=== PATIENT | male | born 1945 | race Caucasian/White ===

== ENCOUNTER → 2021-02-10 16:03 | Outpatient (BNVA) | payer MEDICARE, OTHER, SELFPAY | PROVIDERS: Visit Provider Nurse Practitioner Family | DX: R55 Syncope and collapse (principal); G20 Parkinson's disease; Z91.81 History of falling | CPT/HCPCS: Q3014 ==

== ENCOUNTER → 2021-03-16 13:38 | Outpatient (BNVA) | payer MEDICARE, OTHER, SELFPAY | PROVIDERS: Visit Provider Nurse Practitioner Family | DX: G20 Parkinson's disease (principal); G47.52 REM sleep behavior disorder; G47.61 Periodic limb movement disorder; M43.6 Torticollis; R55 Syncope and collapse | CPT/HCPCS: 99212 ==

== ENCOUNTER → 2021-05-18 10:46 | Outpatient (BNVA) | payer MEDICARE, OTHER, SELFPAY | PROVIDERS: PCP Internal Medicine; Visit Provider Nurse Practitioner Family | DX: G20 Parkinson's disease (principal); R55 Syncope and collapse; M43.6 Torticollis; G24.9 Dystonia, unspecified; R44.3 Hallucinations, unspecified; F17.290 Nicotine dependence, other tobacco product, uncomplicated | CPT/HCPCS: Q3014 ==

== ENCOUNTER 2021-07-06 13:04 | Outpatient (REF) | payer MEDICARE, OTHER, SELFPAY ==
--- NOTE | 2021-07-06 13:11 | EEG_ITS ---
This is a 16-channel EEG with an EKG lead. The patient is reported awake during the tracing. Background EEG rhythm is 5 to 20 microvolt, 7 to 8 hertz with no obvious asymmetry or paroxysmal tendency. Photic stimulation does not produce any significant driving. Hyperventilation is not performed. Cardiac lead does not reveal any significant abnormality. No sharp wave spikes or asymmetry noted. IMPRESSION: Mild generalized slowing with no evidence of seizure disorder. MD ASYA Sebatsian/MIKE / [id number]
== END 2021-07-06 13:05 | disposition home or self-care (01) ==
LOC: HO.NEURO 13:04
PROVIDERS: PCP Internal Medicine; Visit Provider Nurse Practitioner Family
DX: G20 Parkinson's disease (principal); R55 Syncope and collapse
CPT/HCPCS: 95816

== ENCOUNTER → 2021-07-22 10:41 | Outpatient (BNVA) | payer MEDICARE, OTHER, SELFPAY | PROVIDERS: PCP Internal Medicine; Visit Provider Nurse Practitioner Family | DX: G20 Parkinson's disease (principal); M43.6 Torticollis; G47.52 REM sleep behavior disorder; R55 Syncope and collapse; Z79.899 Other long term (current) drug therapy | CPT/HCPCS: Q3014 ==

== ENCOUNTER → 2021-10-19 11:32 | Outpatient (BNVA) | payer MEDICARE, OTHER, SELFPAY | PROVIDERS: PCP Internal Medicine; Visit Provider Nurse Practitioner Family | DX: G20 Parkinson's disease (principal); M43.6 Torticollis; G47.52 REM sleep behavior disorder | CPT/HCPCS: Q3014 ==

== ENCOUNTER 2024-11-07 06:57 | Outpatient (REF) | payer MEDICARE, OTHER, SELFPAY ==
--- OUTSIDE RECORDS SUMMARY | 2024-11-07 07:00 | XMS_ITS ---
Author Organization [facility] on Care Team Providers Care Layout Designer Name Role Phone Janell Mendez Unavailable Unavailable Manish Hess Unavailable Unavailable Hamzah Kelly Unavailable Unavailable Andreia Edmond Unavailable Unavailable Allergies and adverse reactions Code CodeSystem Substance Reaction Severity StartDate Concern Status 719344243 SNOMED CT Green peas Unknown 05/24/2023 active Care Team Name Role Address Phone Organization Dates Hamzah Kelly [address], [address], [facility] (Office): : [facility] 05/23/2023 - 05/29/2023 Janell Mendez [address] [place] [address], [phone], [place] (Office): [facility] [place] [facility] 05/23/2023 - 05/29/2023 Manish Hess [address] [place] [address], [phone], [place] (Office): [facility] [place] 05/23/2023 - 05/29/2023 Andreia Edmond [address] [place] [address], [phone], [place] (Office): : [facility] [place] 05/23/2023 - 05/29/2023 Immunizations Immunization Status Vaccine Details Vaccine Code CodeSystem Date Notes TB 1 Step Mantoux (PPD) completed tuberculin skin test; unspecified formulation lotNumber: [id number] expiry: 06/04/2026 Mfg: sanofi Pasteur Given 0.1 ml Right Forearm intradermally 98 CVX created date: 05/25/2023 consent date: 05/24/2023 administer ed date: 05/24/2023 Pneumococcal Polysaccharide Vaccine (PPSV23) completed pneumococcal polysaccharide vaccine, 23 valent 33 CVX created date: 05/23/2023 administer ed date: 11/01/2018 Verified in MIIS. SARS-COV-2 (COVID-19) completed SARS-COV-2 (COVID-19) vaccine, mRNA, spike protein, LNP, preservative free, 30 mcg/0.3mL dose Mfg: pfizer Step 2 of Multi-step with next step required 208 CVX created date: 05/23/2023 administer ed date: 05/14/2020 Verified in MIIS. SARS-COV-2 (COVID-19) completed SARS-COV-2 (COVID-19) vaccine, mRNA, spike protein, LNP, preservative free, 30 mcg/0.3mL dose Mfg: pfizer Step 1 of Multi-step with next step required 208 CVX created date: 05/23/2023 administer ed date: 04/23/2020 Verified in MIIS. Shingrix completed zoster vaccine recombinant 187 CVX created date: 05/23/2023 administer ed date: 02/24/2019 Verified in MIIS. Shingrix completed zoster vaccine recombinant 187 CVX created date: 05/23/2023 administer ed date: 11/01/2018 Verified in MIIS. Prevnar 20 Pneumococcal conjugate (PCV20) completed Pneumococcal conjugate vaccine 20-valent (PCV20), polysaccharide [id number] conjugate, adjuvant, preservative free 216 CVX created date: 05/23/2023 administer ed date: 11/07/2021 Verified in MIIS. SARS-COV-2 (COVID-19 BOOSTER) completed SARS-COV-2 (COVID-19) vaccine, mRNA, spike protein, LNP, preservative free, sadaf-sucrose, 30 mcg/0.3 mL dose Mfg: PFIZER COMIRNATY 309 CVX created date: 05/23/2023 administer ed date: 11/07/2022 Verified in MIIS. SARS-COV-2 (COVID-19 BOOSTER) completed SARS-COV-2 (COVID-19) vaccine, mRNA, spike protein, LNP, bivalent, preservative free, 30 mcg/0.3 mL dose, sadaf-sucrose formulation Mfg: Pfizer Bilvalent Booster 300 CVX created date: 05/23/2023 administer ed date: 12/09/2021 Verified in MIIS. SARS-COV-2 (COVID-19 BOOSTER) completed SARS-COV-2 (COVID-19) vaccine, mRNA, spike protein, LNP, preservative free, 30 mcg/0.3mL dose Mfg: SendHub Booster # 2 208 CVX created date: 05/23/2023 administer ed date: 05/14/2021 Verified in MIIS. SARS-COV-2 (COVID-19 BOOSTER) completed SARS-COV-2 (COVID-19) vaccine, mRNA, spike protein, LNP, preservative free, 30 mcg/0.3mL dose Mfg: SendHub Booster # 1 208 CVX created date: 05/23/2023 administer ed date: 11/11/2020 Verified in MIIS. RSV, recombinant, protein subunit RSVpreF, adjuvant rec completed Respiratory syncytial virus (RSV), vaccine, recombinant, protein subunit RSV prefusion F, adjuvant reconstituted, 0.5 mL, preservative free 303 CVX created date: 05/23/2023 administer ed date: 11/21/2022 Verified in MIIS. influenza, unspecified formulation completed influenza virus vaccine, unspecified formulation 88 CVX created date: 05/23/2023 administer ed date: 11/07/2022 Verified in MIIS. 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 05/23/[address] active 4 CELLULITIS OF LEFT UPPER LIMB 05/23/[address] active 5 ESSENTIAL (PRIMARY) HYPERTENSION 05/23/[address] active 6 HYPERLIPIDEMIA, UNSPECIFIED 05/23/[address] active 7 HYPOTHYROIDISM, UNSPECIFIED 05/23/[address] active 8 INFLUENZA DUE TO IDENTIFIED NOVEL INFLUENZA A VIRUS WITH OTHER RESPIRATORY MANIFESTATIONS 05/23/[address] active 9 PARKINSON'S DISEASE WITH DYSKINESIA, WITHOUT MENTION OF FLUCTUATIONS 05/23/[address] active Reason for Referral No Reasons for Referral Entered Social History Social History Observation Description Start Date End Date Code Code System Current Smoking Status Tobacco smoking consumption unknown 919517995 SNOMED CT Sex Assigned At Male 1945 32577-0 [facility] Gender Identity Sexual Orientation Vital Signs Code Code System Vitals Name Values and Units Timing Information 02405-8 [facility] Pain Level Value=0.0 05/29/2023 9279-1 [facility] Respiratory Rate Value=18.0 Units=/m in 05/28/2023 8462-4 [facility] Blood Pressure-Diastolic Value=86 Un its=mmHg 05/28/2023 8480-6 [facility] Blood Pressure-Systolic Slprn=744 Un its=mmHg 05/28/2023 8310-5 [facility] Body Temperature Value=98.6 Units= F 05/28/2023 8867-4 [facility] Heart rate Value=70.0 Units=/min 14136-6 [facility] O2 % BldC Oximetry Value=96.0 Units= % 05/28/2023 8302-2 [facility] Height Value=70.0 Units=Inches 05/28/2023 07193-6 [facility] Weight Dkkjx=714.0 Units=Lbs
--- OUTSIDE RECORDS SUMMARY | 2024-11-07 07:00 | XMS_ITS | Clinical Summary ---
Author Organization [facility] Address [address] [place] [address] Care Team Providers Care Makeup Sales Consultant Name Role Phone Derik Albino Mary Kay Primary Care Provider [phone] Allergies No known active allergies Medications levothyroxine (SYNTHROID, LEVOTHROID) 112 mcg tablet 11/06/2020 Active Myrbetriq 50 mg tablet Take 1 tablet by mouth once a day. 08/19/2020 Active rasagiline (AZILECT) 1 mg tablet Take 1 mg by mouth once a day. 08/19/2020 Active simvastatin (ZOCOR) 20 mg tablet Take 20 mg by mouth once a day. 09/25/2020 Active Inbrija 42 mg 02/16/2020 Activ e finasteride (PROSCAR) 5 mg tablet Take 5 mg by mouth once a day. 10/06/2020 Active Rytary 23.75-95 mg capsule TAKE 3 CAPSULES BY MOUTH 4 TIMES DAILY 07/30/2020 Active citalopram (CeleXA) 10 mg tablet Take 10 mg by mouth once a day. 08/19/2020 Active cholecalciferol (VITAMIN D3) 1,000 unit tablet Take 1,000 Units by mouth once a day. Active Social History Tobacco Use Types Packs/Day Years Used Date Smoking Tobacco: Some Days Smokeless Tobacco: Never Comments:cigar Sex and Gender Information Value Date Recorded Sex Assigned at Male 10/26/2020 12:38 PM EDT Legal Sex Male 4:12 PM EDT Gender Identity Male 10/26/2020 12:38 PM EDT Sexual Orientation Straight 10/26/2020 12 :38 PM EDT Last Filed Vital Signs Vital Sign Reading Time Taken Comments Blood Pressure 135/77 11/08/2020 1:17 PM EDT Pulse 76 11/08/2020 1:17 PM EDT Temperature 36.8 C (98.2 F) 11/08/2020 1:17 PM EDT Respiratory Rate - - Oxygen Saturation - - Inhaled Oxygen Concentration - - Weight - - Height - - Body Mass Index - - Plan of Treatment Health Maintenance Due Date Last Done Comments DTaP,Tdap,and Td Vaccines (1 - Tdap) 1968 Pneumococcal Vaccine: 50+ Years (2 of 2 - PCV) 11/02/2019 11/01/2018 RSV Vaccine (60+ years old and patients) (1 - 1-dose 75+ series) 2021 Alcohol/Substance Use Screening 02/06/2024 Health Care Proxy Review 02/06/2024 COVID-19 Vaccine (3 - season) 2024 05/14/2020, 04/23/2020 Influenza Vaccine (#1) 2024 , 11/07/2019, 10/26/2018, Additional history exists Zoster Vaccines Completed 02/24/2019, 11/01/2018 Hepatitis B Vaccines Aged Out No long er eligible based on patient's age to complete this topic Insurance MEDICARE [facility] Care Teams Makeup Sales Consultant Relationship Specialty Start Date End Date Albino More [address] [place] [phone] PCP - General Internal Medicine 10/25/20
[2024-11-07 07:02] LABS: MANUAL DIFF FLAG NO
[2024-11-07 07:45] LABS: Hematocrit 37.8 % (42.0-52.0); Hemoglobin 12.6 g/dl (14.0-18.0); Imm Gran Abs Auto 0.01 X10*3/uL (0.00-0.03); Imm Gran Pct Auto 0.2 % (0.0-0.4); Lymphocytes Absolute Auto 1.1 X10*3/uL (1.2-4.9); Mean Corpuscular HGB Conc 33.3 g/dl (31.0-36.0); Mean Corpuscular Hemoglobin 32.4 pg (27.0-33.0); Mean Corpuscular Volume 97.2 fL (80.0-98.0); NRBC Abs Auto 0.000 X10*3/uL (0.0-0.012); NRBC Pct Auto 0.0 /100WBC (0.0-0.2); Platelet Count 118 X10*3/uL (160-400); Red Blood Count 3.89 X10*6/uL (4.60-5.80); White Blood Count 4.5 X10*3/uL (4.8-10.8)
[2024-11-07 08:20] LABS: Thyroid Stimulating Hormone 0.23 uIU/mL (0.32-4.0)
[2024-11-07 11:35] LABS: Alanine Aminotransferase 6 U/L (0-40); Albumin Level 3.5 g/dL (3.5-5.0); Alkaline Phosphatase 70 U/L (39-117); Anion Gap 11 (12-20); Aspartate Amino Transferase 22 U/L (5-37); Blood Urea Nitrogen 28 mg/dL (9-16); Calcium 8.6 mg/dL (8.4-10.2); Carbon Dioxide 29 mmol/L (22-29); Chloride 108 mmol/L (96-108); Estimated Glomerular Filt Rate > 60; Potassium 4.0 mmol/L (3.3-5.1); Sodium 144 mmol/L (135-145); Total Protein 6.3 g/dL (6.5-8.0)
== END 2024-11-07 06:58 | disposition home or self-care (01) ==
LOC: HO.HSH3E 06:57
PROVIDERS: Visit Provider Nurse Practitioner
DX: E78.5 Hyperlipidemia, unspecified (principal); E03.9 Hypothyroidism, unspecified; Z86.73 Personal history of transient ischemic attack (TIA), and cerebral infarction without residual deficits
CPT/HCPCS: 36415; 80053; 80170; 82306; 84443; 85025

== ENCOUNTER 2024-12-01 18:39 | Outpatient (REF) | payer MEDICARE, OTHER, SELFPAY ==
[2024-12-01 19:17] LABS: Alanine Aminotransferase 32 U/L (0-40); Albumin Level 3.4 g/dL (3.5-5.0); Alkaline Phosphatase 99 U/L (39-117); Anion Gap 15 (12-20); Aspartate Amino Transferase 90 U/L (5-37); Blood Urea Nitrogen 32 mg/dL (9-16); Calcium 8.8 mg/dL (8.4-10.2); Carbon Dioxide 20 mmol/L (22-29); Chloride 109 mmol/L (96-108); Estimated Glomerular Filt Rate > 60; Potassium 3.8 mmol/L (3.3-5.1); Sodium 140 mmol/L (135-145); Total Protein 6.9 g/dL (6.5-8.0)
--- OUTSIDE RECORDS SUMMARY | 2024-12-01 19:32 | XMS_ITS | Clinical Summary ---
Author Organization [facility] Address [address] [facility] [address] [place] [phone] Phone Care Team Providers Care Supervisor Air Conditioning Installer Name Role Phone Vandana Arnold MD Primary Care Provider Allergies No known active allergies Medications RYTARY 23.75-95 mg ER capsule TAKE 3 CAPSULE BY MOUTH 4 TIMES A DAY 04/01/2022 Active rasagiline (AZILECT) 1 mg 04/25/2022 Acti ve melatonin 5 mg Tab TAKE 1 TABLET BY MOUTH EVERYDAY AT BEDTIME 03/31/2022 Active levothyroxine (SYNTHROID, LEVOTHROID) 112 MCG tablet Take 112 mcg by mouth daily. 01/31/2022 Active levodopa (INBRIJA) 42 mg CpDv Inhale 84 mg into the lungs. 03/31/2022 Active finasteride (PROSCAR) 5 mg tablet Take 5 mg by mouth daily. 02/20/2022 Active amantadine HCl (GOCOVRI) 137 mg Cp24 Take 137 mg by mouth. 03/31/2022 Active vibegron (GEMTESA) 75 mg tablet Take 75 mg by mouth. 03/31/2022 Active citalopram (CELEXA) 10 MG tablet Take 10 mg by mouth daily. Active Social History Tobacco Use Types Packs/Day Years Used Date Smoking Tobacco: Never Assessed Education Answer Date Recorded Are you interested in more education? Not on don e 06/02/2022 Are you concerned about learning? Not on file 06/02/2022 No 06/02/2022 No 06/02/2022 Digital Access Answer Date Recorded No 06/29/2022 No 06/29/2022 No 06/29/2022 Reliable internet access at home? Not on file 06/29/2022 Device with a working camera? Not on file Sex and Gender Information Value Date Recorded Sex Assigned at Not on file Legal Sex Male 11:47 AM EDT Gender Identity Not on file Sexual Orientation Not on file Last Filed Vital Signs Vital Sign Reading Time Taken Comments Blood Pressure 121/78 04/29/2022 12:42 PM EDT Pulse 73 04/29/2022 12:42 PM EDT Temperature 36.6 C (97.9 F) 04/29/2022 12:42 PM EDT Respiratory Rate 16 04/29/2022 12:42 PM EDT Oxygen Saturation 99% 04/29/2022 12:42 PM EDT Inhaled Oxygen Concentration - - Weight 75.3 kg (166 lb) 04/29/2022 12:42 PM EDT Height 177.8 cm (5' 10 ) 04/29/2022 12:42 PM EDT Body Mass Index 23.82 04/29/2022 12:42 PM EDT Plan of Treatment Health Maintenance Due Date Last Done Comments Adult Td,Tdap Booster 1945 LIPID PANEL 1945 TSH LEVEL 1945 DEPRESSION SCREENING 1958 SMOKING Hx and SMOKELESS TOBACCO SCREENING 1959 HEPATITIS C SCREENING 1964 PNEUMOCOCCAL VACCINES (50+ years) (2 of 2 - PCV) 11/02/2019 11/01/2018 RSV VACCINE (1 - 1-dose 75+ series) 2021 INFLUENZA VACCINE (#1) 2024 , 10/26/2018, 10/31/2017 COVID-19 VACCINE (3 - 2024-2 6 season) 2024 05/14/2020, 04/23/2020 ZOSTER VACCINES Completed 02/24/2019, 11/01/2018 HEPATITIS A VACCINES Aged Out No long er eligible based on patient's age to complete this topic HIB VACCINES Aged Out No longer eligi ble based on patient's age to complete this topic MENINGOCOCCAL VACCINES (ACWY) Aged Out No longer eligible based on patient's age to complete this topic MENINGOCOCCAL VACCINES (B) Aged Out N o longer eligible based on patient's age to complete this topic Medical Devices Not on file [place] [address] [place] [id number] MEDICARE PART A & B [facility] MEDICARE SUPPLEMENT MEDICARE PART A & B [facility] MEDICARE SUPPLEMENT MEDICARE PART A & B [facility] MEDICARE SUPPLEMENT MEDICARE PART A & B [facility] MEDICARE SUPPLEMENT MED[facility]ARE PART [facility] & [facility] SUPPLE[facility] MED[facility]ARE PART A & [facility] EXTENSION MEDICARE SUPPLEMENT MEDICARE PART A & B MEDICARE SUPPLEMENT MEDICARE PART A & B [facility] MEDICARE SUPPLEMENT MEDICARE PART A & B [facility] MEDICARE SUPPLEMENT Care Teams Supervisor Air Conditioning Installer Relationship Specialty Start Date End Date Vandana Arnold MD [address] [place] [phone] PCP - General Neurology 08/02/20 Additional Source Comments The information contained in this document represents components of the legal health record. It is not the complete legal health record.[facility]
--- OUTSIDE RECORDS SUMMARY | 2024-12-01 19:32 | XMS_ITS | Clinical Summary ---
Author Organization [facility] Address [address] [place] [address] Care Team Providers Care Sole Inker Name Role Phone Derik Albino Mary Kay Primary Care Provider Allergies No known active allergies Medications levothyroxine [...] age to complete this topic Insurance MEDICARE [facility] Care Teams Sole Inker Relationship Specialty Start Date End Date Albino More [address] [place] [phone] PCP - General Internal Medicine 10/25/20
[2024-12-01 19:54] LABS: Hemoglobin 12.4 g/dl (14.0-18.0); Mean Corpuscular Volume 96.1 fL (80.0-98.0); NRBC Abs Auto 0.000 X10*3/uL (0.0-0.012); NRBC Pct Auto 0.0 /100WBC (0.0-0.2); PLT CLUMP 1; SCAN SMEAR FLAG 1
[2024-12-01 19:56] LABS: Hematocrit 36.8 % (42.0-52.0); Imm Gran Abs Auto 0.04 X10*3/uL (0.00-0.03); Imm Gran Pct Auto 0.4 % (0.0-0.4); Lymphocytes Absolute Auto 0.5 X10*3/uL (1.2-4.9); MANUAL DIFF FLAG SCAN; Mean Corpuscular HGB Conc 33.7 g/dl (31.0-36.0); Mean Corpuscular Hemoglobin 32.4 pg (27.0-33.0); Red Blood Count 3.83 X10*6/uL (4.60-5.80)
[2024-12-01 20:08] LABS: Platelet Count 99 X10*3/uL (160-400); White Blood Count 9.6 X10*3/uL (4.8-10.8)
== END 2024-12-01 18:40 | disposition home or self-care (01) ==
LOC: HO.LAB 18:39
PROVIDERS: PCP Nurse Practitioner; Visit Provider Nurse Practitioner
DX: Z13.89 Encounter for screening for other disorder (principal)
CPT/HCPCS: 36415; 80053; 85025

== ENCOUNTER 2024-12-01 22:10 | Outpatient (REF) | payer MEDICARE, OTHER, SELFPAY ==
[2024-12-02 01:00] LABS: Appearance Urine Cloudy; Glucose Urine UA Negative (Negative); PH 5.5 (5.0-9.0); Specific Gravity - Urine 1.025 (1.005-1.025); UMIC TRIGGER UA YES
== END 2024-12-01 22:11 | disposition home or self-care (01) ==
LOC: HO.HSH3E 22:10
PROVIDERS: Visit Provider Nurse Practitioner
DX: R53.83 Other fatigue (principal)
CPT/HCPCS: 36415; 80053; 81001; 81003; 85025

== ENCOUNTER 2024-12-03 21:56 | Outpatient (REF) | payer MEDICARE, OTHER, SELFPAY ==
--- OUTSIDE RECORDS SUMMARY | 2024-12-03 22:01 | XMS_ITS | Clinical Summary ---
Author Organization [facility] Address [address] [place] [address] Care Team Providers Care Prepared Foods Team Leader Name Role Phone Derik Albino Mary Kay Primary Care Provider [phone] Allergies No known active allergies Medications levothyroxine [...] age to complete this topic Insurance MEDICARE [facility] Care Teams Prepared Foods Team Leader Relationship Specialty Start Date End Date Albino More [address] [place] [phone] PCP - General Internal Medicine 10/25/20
--- OUTSIDE RECORDS SUMMARY | 2024-12-03 22:01 | XMS_ITS | Clinical Summary ---
Author Organization [facility] Address [address] [facility] [address] [place] [address] Phone Care Team Providers Care Ground Instructor Advanced Name Role Phone Vandana Arnold MD Primary [...] topic Medical Devices Not on file [place] [id number] MEDICARE PART A & B [facility] MEDICARE SUPPLEMENT MEDICARE PART A & B [facility] MEDICARE SUPPLEMENT MEDICARE PART A & B [facility] MEDICARE SUPPLEMENT MEDICARE PART A & B [facility] MEDICARE SUPPLEMENT MEDICARE PART A & B [facility] MEDICARE SUPPLEMENT MEDICARE PART A & B [facility] EX[facility]ENSION MEDICARE SUPPLEMENT MEDICARE PART A & B MEDICARE SUPPLEMENT MEDICARE PART A & B [facility] MEDICARE SUPPLEMENT MEDICARE PART A & B [facility] MEDICARE SUPPLEMENT Care Teams Ground Instructor Advanced Relationship Specialty Start Date End Date Vandana Arnold MD [address] [place] [phone] PCP - General Neurology 08/02/20 Additional Source Comments The information contained in this document represents components of the legal health record. It is not the complete legal health record.[facility]
== END 2024-12-03 21:57 | disposition home or self-care (01) ==
LOC: HO.HSH 21:56
PROVIDERS: Visit Provider Nurse Practitioner
DX: Z13.89 Encounter for screening for other disorder (principal)
CPT/HCPCS: 87086; 87088; 87186

== ENCOUNTER 2024-12-04 06:10 | Outpatient (REF) | payer MEDICARE, OTHER, SELFPAY ==
--- OUTSIDE RECORDS SUMMARY | 2024-12-04 06:14 | XMS_ITS | Clinical Summary ---
Author Organization [facility] Address [address] [facility] [address] [place] [phone] Phone Care Team Providers Care Pad Machine Feeder Name Role Phone Vandana Arnold MD Primary [...] topic Medical Devices Not on file [place] [address] [id number] MEDICARE PART A & B [facility] MEDICARE SUPPLEMENT MEDICARE PART A & B [facility] MEDICARE SUPPLEMENT MEDICARE PART A & B [facility] MEDICARE SUPPLEMENT MEDICARE PART A & B [facility] MEDICARE SUPPLEMENT MEDICARE PART A & B [facility] MEDICARE SUPPLEMENT MEDICARE PART A & B [facility] EXTENSION MEDICARE SUPPLEMENT MEDICARE PART A & B MEDICARE SUPPLEMENT MEDICARE PART A & B [facility] [employer] MEDICARE SUPPLEMENT MEDICARE PART A & B [facility] MEDICARE SUPPLEMENT Care Teams Pad Machine Feeder Relationship Specialty Start Date End Date Vandana Arnold MD [address] [place] [phone] PCP - General Neurology 08/02/20 Additional Source Comments The information contained in this document represents components of the legal health record. It is not the complete legal health record.[facility]
--- OUTSIDE RECORDS SUMMARY | 2024-12-04 06:14 | XMS_ITS | Clinical Summary ---
Author Organization [facility] Address [address] [place] [address] Care Team Providers Care Knockdown Man Name Role Phone Derik Albino Mary Kay [...] age to complete this topic Insurance MEDICARE [facility] Care Teams Knockdown Man Relationship Specialty Start Date End Date Albino More [address] [place] [phone] PCP - General Internal Medicine 10/25/20
[2024-12-04 06:19] LABS: MANUAL DIFF FLAG NO
[2024-12-04 06:37] LABS: Alanine Aminotransferase 10 U/L (0-40); Albumin Level 3.3 g/dL (3.5-5.0); Alkaline Phosphatase 83 U/L (39-117); Anion Gap 12 (12-20); Aspartate Amino Transferase 38 U/L (5-37); Blood Urea Nitrogen 22 mg/dL (9-16); Calcium 8.4 mg/dL (8.4-10.2); Carbon Dioxide 24 mmol/L (22-29); Chloride 110 mmol/L (96-108); Estimated Glomerular Filt Rate > 60; Potassium 3.8 mmol/L (3.3-5.1); Sodium 142 mmol/L (135-145); Total Protein 6.3 g/dL (6.5-8.0)
[2024-12-04 07:09] LABS: Hematocrit 38.1 % (42.0-52.0); Hemoglobin 12.3 g/dl (14.0-18.0); Imm Gran Abs Auto 0.01 X10*3/uL (0.00-0.03); Imm Gran Pct Auto 0.2 % (0.0-0.4); Lymphocytes Absolute Auto 1.3 X10*3/uL (1.2-4.9); Mean Corpuscular HGB Conc 32.3 g/dl (31.0-36.0); Mean Corpuscular Hemoglobin 31.6 pg (27.0-33.0); Mean Corpuscular Volume 97.9 fL (80.0-98.0); NRBC Abs Auto 0.000 X10*3/uL (0.0-0.012); NRBC Pct Auto 0.0 /100WBC (0.0-0.2); Platelet Count 108 X10*3/uL (160-400); Red Blood Count 3.89 X10*6/uL (4.60-5.80); White Blood Count 5.6 X10*3/uL (4.8-10.8)
== END 2024-12-04 06:11 | disposition home or self-care (01) ==
LOC: HO.HSH3E 06:10
PROVIDERS: Visit Provider Nurse Practitioner
DX: Z13.89 Encounter for screening for other disorder (principal)
CPT/HCPCS: 36415; 80053; 85025

== ENCOUNTER 2024-12-31 05:44 | Outpatient (REF) | payer MEDICARE, OTHER, SELFPAY ==
[2024-12-31 05:48] LABS: MANUAL DIFF FLAG NO
--- OUTSIDE RECORDS SUMMARY | 2024-12-31 05:48 | XMS_ITS | Clinical Summary ---
Author Organization [facility] Address [address] [place] [address] Care Team Providers Care C 13 Catapult Operator Name Role Phone Derik Albino Mary Kay Primary Care Provider [phone] Allergies No known active allergies Medications levothyroxine [...] Screening 02/06/2024 Health Care Proxy Review 02/06/2024 Influenza Vaccine (#1) 2024 , 11/07/2019, 10/26/2018, Additional history exists COVID-19 Vaccine ( season) 2024 05/14/2020, 04/23/2020 Zoster Vaccines Completed 02/24/2019, 11/01/2018 Hepatitis B Vaccines Aged Out No long er eligible based on patient's age to complete this topic Insurance MEDICARE [facility] Care Teams C 13 Catapult Operator Relationship Specialty Start Date End Date Albino More [address] [place] [phone] PCP - General Internal Medicine 10/25/20
--- OUTSIDE RECORDS SUMMARY | 2024-12-31 05:48 | XMS_ITS | Clinical Summary ---
Author Organization [facility] Address [address] [facility] [address] [place] [phone] Phone Care Team Providers Care Bisque Kiln Placer Name Role Phone Vandana Arnold MD Primary [...] topic Medical Devices Not on [place] [address] [place] [id number] MEDICARE PART A & B [facility] EX[facility]ENSION MEDICARE SUPPLEMENT MEDICARE PART A & B [facility] MEDICARE SUPPLEMENT MEDICARE PART A & B [facility] MEDICARE SUPPLEMENT MEDICARE PART A & B [facility] EX[facility]ION MEDICARE SUPPLEMENT MEDICARE PART A & B [facility] EXTENSION MEDICARE SUPPLEMENT MEDICARE PART A & B [facility] EXTENSION MEDICARE SUPPLEMENT MEDICARE PART A & B MEDICARE SUPPLEMENT MEDICARE PART A & B [facility] EX[employer]ION MEDICARE SUPPLEMENT MEDICARE PART A & B [facility] [employer] MEDICARE SUPPLEMENT Care Teams Bisque Kiln Placer Relationship Specialty Start Date End Date Vandana Arnold MD [address] [place] [phone] PCP - General Neurology 08/02/20 Additional Source Comments The information contained in this document represents components of the legal health record. It is not the complete legal health record.[facility]
[2024-12-31 06:15] LABS: Hematocrit 38.0 % (42.0-52.0); Hemoglobin 12.5 g/dl (14.0-18.0); Imm Gran Abs Auto 0.01 X10*3/uL (0.00-0.03); Imm Gran Pct Auto 0.2 % (0.0-0.4); Lymphocytes Absolute Auto 1.2 X10*3/uL (1.2-4.9); Mean Corpuscular HGB Conc 32.9 g/dl (31.0-36.0); Mean Corpuscular Hemoglobin 32.1 pg (27.0-33.0); Mean Corpuscular Volume 97.4 fL (80.0-98.0); NRBC Abs Auto 0.000 X10*3/uL (0.0-0.012); NRBC Pct Auto 0.0 /100WBC (0.0-0.2); Platelet Count 130 X10*3/uL (160-400); Red Blood Count 3.90 X10*6/uL (4.60-5.80); White Blood Count 4.4 X10*3/uL (4.8-10.8)
[2024-12-31 06:40] LABS: Alanine Aminotransferase 26 U/L (0-40); Albumin Level 3.7 g/dL (3.5-5.0); Alkaline Phosphatase 76 U/L (39-117); Anion Gap 11 (12-20); Aspartate Amino Transferase 23 U/L (5-37); Blood Urea Nitrogen 23 mg/dL (9-16); Calcium 8.6 mg/dL (8.4-10.2); Carbon Dioxide 27 mmol/L (22-29); Chloride 109 mmol/L (96-108); Estimated Glomerular Filt Rate > 60; Lipase 16 U/L (8-78); Potassium 3.8 mmol/L (3.3-5.1); Sodium 143 mmol/L (135-145); Total Protein 6.5 g/dL (6.5-8.0)
[2024-12-31 06:42] LABS: Amylase 40 U/L (28-100)
== END 2024-12-31 05:45 | disposition home or self-care (01) ==
LOC: HO.HSH3E 05:44
PROVIDERS: Visit Provider Nurse Practitioner
DX: R10.A1 Flank pain, right side (principal)
CPT/HCPCS: 36415; 80048; 80076; 82150; 83690; 85025